=== PATIENT | male | born 1990 | race African-American/Black ===

== ENCOUNTER 2017-06-14 09:41 | Emergency (ER) | payer OTHER ==
[~2017-06-14] VITALS: Ht 187.9 cm; Wt 122.5 kg
[~2017-06-14 09:41] MED LIST: ATARAX,VISTARIL50 MG PO; AUGMENTIN 875 M1 TAB PO; AUGMENTIN 875875 MG PO; BACTRIM DS 8001 TA1 PO; CARBIDOPA/LEVOD1 TA1 PO; CEFADROXIL500 M1 PO; CEPHALEXIN500 M1 PO; CLINDAMYCIN HC300 MG PO; NORCO 5-325 TA1 EACH PO; NOVAPLUS V0.09 MG/Ac IH; PLACEBO #001 EACH PO; Robaxin PO; SEPTRA DS 800 M1 TAB PO; SUBOXONE 4 MG-1 EACH PO; TRAMADOL HCL50 MG PO; VICODIN 500 MG-1 TAB PO; ZOFRAN 4 MG ED2 TAB PO
[2017-06-14 09:48] VITALS: BP 150/93
[2017-06-14] MEDS ORDERED: ZYRTEC10 MG PO (10:53)
[2017-06-14] MEDS ORDERED: AMOXICILLIN500 M2 PO (10:53)
== END 2017-06-14 11:36 | disposition home or self-care (01) ==
LOC: ED 09:41
DX: J01.90 Acute sinusitis, unspecified (principal); F17.200 Nicotine dependence, unspecified, uncomplicated; F11.10 Opioid abuse, uncomplicated; F12.10 Cannabis abuse, uncomplicated; Z90.89 Acquired absence of other organs

== ENCOUNTER 2018-06-07 20:47 | Emergency (ER) | payer OTHER ==
[~2018-06-07] VITALS: Ht 187.9 cm; Wt 127.0 kg
[2018-06-07 20:47] VITALS: BP 137/78
[~2018-06-07 20:47] MED LIST changes: +AMOXICILLIN500 M2 PO; +MUCINEX ER600 MG PO; +SUBOXONE 8 MG-1 EACH SL; +ZYRTEC10 MG PO
[2018-06-07] MEDS ORDERED: SEPTDS PO (22:45)
[2018-06-07] MEDS ORDERED: CEPHALEXIN500 M1 PO (22:45)
== END 2018-06-07 22:43 | disposition home or self-care (01) ==
LOC: ED 20:47
DX: L02.416 Cutaneous abscess of left lower limb (principal); R21 Rash and other nonspecific skin eruption; I10 Essential (primary) hypertension; J45.909 Unspecified asthma, uncomplicated; F17.200 Nicotine dependence, unspecified, uncomplicated; Z79.899 Other long term (current) drug therapy

== ENCOUNTER 2018-11-03 08:38 | Emergency (ER) | payer OTHER ==
[~2018-11-03] VITALS: Ht 187.9 cm; Wt 129.3 kg
[~2018-11-03 08:38] MED LIST changes: +SEPTDS PO
[2018-11-03 08:39] VITALS: BP 151/72
[2018-11-03] MEDS ORDERED: TAMIFLU 75MG CA75 MG PO (09:27)
[2018-11-03] MEDS ORDERED: Motrin,Rufen800 MG PO (09:27)
== END 2018-11-03 09:42 | disposition home or self-care (01) ==
LOC: ED 08:38
DX: J10.1 Influenza due to other identified influenza virus with other respiratory manifestations (principal); I10 Essential (primary) hypertension; J45.909 Unspecified asthma, uncomplicated; F17.200 Nicotine dependence, unspecified, uncomplicated; F14.10 Cocaine abuse, uncomplicated; F12.10 Cannabis abuse, uncomplicated; F11.10 Opioid abuse, uncomplicated; Z98.890 Other specified postprocedural states; Z90.89 Acquired absence of other organs

== ENCOUNTER 2018-11-17 12:33 | Emergency (ER) | payer OTHER ==
[~2018-11-17] VITALS: Ht 187.9 cm; Wt 129.3 kg
[~2018-11-17 12:33] MED LIST changes: +Motrin,Rufen800 MG PO; +TAMIFLU 75MG CA75 MG PO
[2018-11-17 12:35] VITALS: BP 130/82
[2018-11-17 13:02] LABS: BILIRUBIN NEGATIVE (NEGATIVE); BLOOD NEGATIVE (NEGATIVE); CLARITY CLEAR (CLEAR); COLOR YELLOW (YELLOW); GLUCOSE NEGATIVE (NEGATIVE); KETONE NEGATIVE (NEGATIVE); LEUKO ESTERASE NEGATIVE (NEGATIVE); NITRITE NEGATIVE (NEGATIVE); SPECIFIC GRAVITY 1.025 (1.005-1.030)
[2018-11-17 13:12] LABS: BACTERIA 1+; MUCOUS 1+
[2018-11-19 00:06] LABS: GONOCOCCUS BY NAA Negative (Negative)
== END 2018-11-17 13:58 | disposition home or self-care (01) ==
LOC: ED 12:33
PROVIDERS: Nurse Practitioner Family
DX: Z20.2 Contact with and (suspected) exposure to infections with a predominantly sexual mode of transmission (principal); Z72.51 High risk heterosexual behavior; F17.200 Nicotine dependence, unspecified, uncomplicated

== ENCOUNTER 2019-07-13 13:16 | Inpatient (IN) | payer OTHER ==
[~2019-07-13] VITALS: Ht 187.9 cm; Wt 103.5 kg
--- NOTE | 2019-07-13 14:57 | NUR ---
MSADMTime: N A 29 year old MALE admitted to under services of CEE GARZA DO. Pt. arrived via ambulatory from [place]. Chief complaint: WITHDRAWAL. VINH WATSON
[2019-07-13 15:04] VITALS: BP 146/82
--- NOTE | 2019-07-13 15:06 | NUR ---
PATIENT MEETS [facility]. CINA=20,CIWA (B)=31. PATIENT WANTS TO FOLLOW UP WITH [facility] FOR MEDICATED-ASSISTED TREATMENT. REINIER BASHIR B.A. [employer]
[2019-07-13 16:00] VITALS: BP 134/90
--- NOTE | 2019-07-13 17:23 | NUR ---
ROBAXIN GIVEN FOR C/O MUSCLE ACHES, REQUIP GIVEN FOR C/O RESTLESS LEGS, VITARIL GIVEN FOR C/O ANXIETY. WILL MONITOR.
[2019-07-13 20:00] VITALS: BP 136/75
[2019-07-14] VITALS: BP 126/61
--- NOTE | 2019-07-14 00:19 | NUR ---
CALLED DR. BUI ABOUT PATIENT BEING ON ATIVAN TAPER. HE STATED DR. ARREOLA PUT HIM ON IT D/T BENZO ADDICTION.
--- NOTE | 2019-07-14 05:46 | NUR ---
MEDICATED WITH ROBAXIN, VISTARIL, REQUIP AND BENTYL FOR COMPLAINTS OF WITHDRAWAL SYMPTOMS. WILL CONTINUE TO MONITOR.
[2019-07-14 06:30] LABS: BASO % 0.4 % (0.0-1.0); EOS # 0.1 10*3/uL (0.0-0.4); EOS % 1.8 % (1.0-4.0); HEMATOCRIT 45.8 % (42.0-52.0); HEMOGLOBIN 15.2 g/dl (14.0-18.0); LYMPH # 1.5 10*3/uL (1.3-4.4); LYMPH % 19.1 % (27.0-41.0); MEAN CELL VOLUME 88.6 fl (80.0-94.0); MEAN CORPUSCULAR HGB 29.4 pg (27.0-31.0); MEAN CORPUSCULAR HGB CONC 33.2 g/dl (33.0-37.0); MEAN PLATELET VOLUME 11.4 fl (9.6-12.3); MONO # 0.6 10*3/uL (0.1-1.0); MONO % 6.9 % (3.0-9.0); NEUT # 5.7 10*3/uL (2.3-7.9); NEUT % 71.4 % (47.0-73.0); PLATELET COUNT AUTOMATED 267 10*3/uL (130-400); RED BLOOD COUNT 5.17 10*6/uL (4.50-5.90); RED CELL DISTRI WIDTH 11.8 % (0-14.5)
[2019-07-14 06:50] LABS: ALBUMIN 3.7 gm/dl (3.1-4.5); ALKALINE PHOSPHATASE 108 U/L (45-117); BUN 13 mg/dl (7-24); CHLORIDE 101 mmol/L (98-107); CREATININE 0.96 mg/dL (0.70-1.30); FREE T4 1.09 ng/dl (0.76-1.46); PHOSPHOROUS 3.5 mg/dL (2.5-4.9); POTASSIUM 4.2 mmol/L (3.5-5.1); SGOT/AST 36 IU/L (3-35); SGPT/ALT 73 U/L (12-78); SODIUM 135 mmol/L (136-145); TOTAL PROTEIN 9.1 gm/dL (6.4-8.2)
[2019-07-14 06:55] LABS: THYROID STIM HORMONE (HS) 0.103 uIU/ml (0.358-4.75)
--- NOTE | 2019-07-14 07:00 | NUR ---
ARRIVED ON SHIFT, PER PATIENT REQUEST REPORT NOT GIVEN AT BEDSIDE, NO NEEDS VOICED AT THIS TIME, WHITE BOARD UPDATED.
[2019-07-14 08:00] VITALS: BP 130/82
--- NOTE | 2019-07-14 08:10 | NUR ---
Shift chart check completed.
--- NOTE | 2019-07-14 08:56 | NUR ---
PATIENT C/O NAUSEA, PATIENT HAD IV ZOFRAN ORDERED, CALL PLACED TO DR. ANGELO, REQUESTED IT BE CHANGED TO PO PATIENT DOES NOT HAVE IV ACCESS.
--- NOTE | 2019-07-14 09:26 | NUR ---
PATIENT REQUESTING HE BE ESCORTED DOWNSTAIRS TO SEE HIS SIGNIFICANT OTHER, HAD TOLD HIM ON ADMISSION THAT HE COULD, I DID ADVISE PATIENT THAT IT WAS AGAINST POLICY, HE WAS VERY UPSET AND STATED HE WAS JUST GOING TO LEAVE THEN, I ADVISED HIM I WOULD CALL NEWSPERSON WHICH I DID, SHE VERSED SHE WILL CALL DIRECTOR TO FIND OUT. AWAITING CALL BACK.
[2019-07-14 10:19] LABS: URINE AMPHETAMINES < 1000 (1000ng/ml); URINE BARBITURATES < 200 (200ng/ml); URINE BENZODIAZEPINES < 200 (200ng/ml); URINE CANNABINOIDS (THC) > 50 (50ng/ml); URINE COCAINE < 300 (300ng/ml); URINE METHADONE < 300 (300ng/ml); URINE OPIATES < 300 (300ng/ml); URINE PHENCYCLIDINE < 25 (25ng/ml)
[2019-07-14 12:00] VITALS: BP 122/73
--- NOTE | 2019-07-14 14:03 | NUR ---
PATIENT IS GOING TO FOLLOW UP WITH A [facility] CALLED [facility] FOR HIS AFTERCARE PLAN. PATIENT IS ALREADY ESTABLISHED WITH THAT FACILITY. REINIER BASHIR B.A. [employer] DIRECTOR
--- NOTE | 2019-07-14 14:20 | NUR ---
CALL PLACED TO DR ANGELO ADVISED THAT PATIENT LEFT AMA PATIENT DID NOT HAVE IV OR TELEMETRY, SIGNED AMA PAPERS AND INVENTORY SHEET.
== END 2019-07-14 14:20 | disposition left against medical advice (07) | DRG 770 ==
LOC: EDHOLD 13:16 → 5E 13:16
PROVIDERS: Internal Medicine; ADMIT Internal Medicine
DX: F11.23 Opioid dependence with withdrawal (principal); F13.10 Sedative, hypnotic or anxiolytic abuse, uncomplicated; F14.10 Cocaine abuse, uncomplicated; F41.9 Anxiety disorder, unspecified; J45.909 Unspecified asthma, uncomplicated; I10 Essential (primary) hypertension; F17.210 Nicotine dependence, cigarettes, uncomplicated; F12.10 Cannabis abuse, uncomplicated; Z53.21 Procedure and treatment not carried out due to patient leaving prior to being seen by health care provider; Z90.89 Acquired absence of other organs; Z82.49 Family history of ischemic heart disease and other diseases of the circulatory system; Z83.6 Family history of other diseases of the respiratory system; Z71.6 Tobacco abuse counseling; E87.1 Hypo-osmolality and hyponatremia; E83.41 Hypermagnesemia

== ENCOUNTER 2020-03-06 07:54 | Emergency (ER) | payer OTHER ==
[~2020-03-06] VITALS: Ht 187.9 cm; Wt 104.3 kg
[2020-03-06 08:00] VITALS: BP 124/81
[2020-03-06 09:03] LABS: COLOR YELLOW (YELLOW)
[2020-03-06 09:04] LABS: BACTERIA 1+; BILIRUBIN 1+ (NEGATIVE); BLOOD NEGATIVE (NEGATIVE); CLARITY SL CLOUDY (CLEAR); GLUCOSE NEGATIVE (NEGATIVE); KETONE 1+ (NEGATIVE); LEUKO ESTERASE NEGATIVE (NEGATIVE); MUCOUS 3+; NITRITE NEGATIVE (NEGATIVE); PH 8.5 (5.0-9.0); SPECIFIC GRAVITY 1.005 (1.005-1.030)
== END 2020-03-06 09:55 | disposition home or self-care (01) ==
LOC: ED 07:54
PROVIDERS: Emergency Medicine
DX: G56.31 Lesion of radial nerve, right upper limb (principal); R39.12 Poor urinary stream; J45.909 Unspecified asthma, uncomplicated; I10 Essential (primary) hypertension; F17.200 Nicotine dependence, unspecified, uncomplicated; Z90.89 Acquired absence of other organs

== ENCOUNTER 2020-05-18 18:14 | Emergency (ER) | payer OTHER ==
[~2020-05-18] VITALS: Wt 90.7 kg
[2020-05-18 18:15] VITALS: BP 110/70
== END 2020-05-18 19:26 | disposition left against medical advice (07) ==
LOC: ED 18:14
DX: T65.91XA Toxic effect of unspecified substance, accidental (unintentional), initial encounter (principal); J45.909 Unspecified asthma, uncomplicated; I10 Essential (primary) hypertension; Z53.21 Procedure and treatment not carried out due to patient leaving prior to being seen by health care provider; Y92.89 Other specified places as the place of occurrence of the external cause

== ENCOUNTER 2021-04-12 18:38 | Emergency (ER) | payer OTHER ==
[2021-04-12 19:34] VITALS: BP 122/62
[2021-04-12 20:10] LABS: HEMATOCRIT 37.2 % (42.0-52.0); MEAN CELL VOLUME 85.5 fl (80.0-94.0); MEAN CORPUSCULAR HGB 27.8 pg (27.0-31.0); MEAN CORPUSCULAR HGB CONC 32.5 g/dl (33.0-37.0); MEAN PLATELET VOLUME 10.5 fl (9.6-12.3); PLATELET COUNT AUTOMATED 172 10*3/uL (130-400); RED BLOOD COUNT 4.35 10*6/uL (4.50-5.90); RED CELL DISTRI WIDTH 11.3 % (0-14.5); WHITE BLOOD COUNT 6.3 10*3/uL (4.8-10.8)
[2021-04-12 20:23] LABS: ALKALINE PHOSPHATASE 424 U/L (45-117); BUN 14 mg/dl (7-24); CHLORIDE 99 mmol/L (98-107); CREATININE 1.01 mg/dL (0.70-1.30); POTASSIUM 3.2 mmol/L (3.5-5.1); SGOT/AST 198 IU/L (3-35); SGPT/ALT 116 U/L (12-78); SODIUM 134 mmol/L (136-145); TOTAL PROTEIN 7.8 gm/dL (6.4-8.2)
[2021-04-12 20:30] LABS: TOTAL CELLS COUNTED 100 #CELLS
[2021-04-12 20:31] LABS: PLATELET SUFFICIENCY NORMAL (NORMAL)
[2021-04-12] MEDS ORDERED: SEPTDS PO (21:02)
[2021-04-12] MEDS ORDERED: CEPHALEXIN500 M1 PO (21:02)
== END 2021-04-12 21:07 | disposition left against medical advice (07) ==
LOC: ED 18:38
PROVIDERS: Emergency Medicine
DX: A41.9 Sepsis, unspecified organism (principal); R50.9 Fever, unspecified; L02.414 Cutaneous abscess of left upper limb; J45.909 Unspecified asthma, uncomplicated; Z87.891 Personal history of nicotine dependence

== ENCOUNTER 2021-04-21 18:02 | Emergency (ER) | payer OTHER ==
[~2021-04-21] VITALS: Ht 187.9 cm; Wt 117.9 kg
[2021-04-21 18:42] VITALS: BP 139/66
== END 2021-04-21 19:42 ==
LOC: ED 18:02
DX: M54.5 Low back pain (principal); M79.604 Pain in right leg; R20.0 Anesthesia of skin; Z53.21 Procedure and treatment not carried out due to patient leaving prior to being seen by health care provider

== ENCOUNTER 2021-04-25 15:44 | Emergency (ER) | payer OTHER ==
[2021-04-25 17:02] LABS: HEMATOCRIT 41.9 % (42.0-52.0); MEAN CELL VOLUME 82.8 fl (80.0-94.0); MEAN CORPUSCULAR HGB 27.5 pg (27.0-31.0); MEAN CORPUSCULAR HGB CONC 33.2 g/dl (33.0-37.0); PLATELET COUNT AUTOMATED 31 10*3/uL (130-400); RED BLOOD COUNT 5.06 10*6/uL (4.50-5.90); RED CELL DISTRI WIDTH 13.5 % (0-14.5); WHITE BLOOD COUNT 25.5 10*3/uL (4.8-10.8)
[2021-04-25 17:25] LABS: ALBUMIN 1.7 gm/dl (3.1-4.5); ALKALINE PHOSPHATASE 403 U/L (45-117); BUN 70 mg/dl (7-24); CHLORIDE 89 mmol/L (98-107); CPK 58 U/L (39-308); POTASSIUM 3.7 mmol/L (3.5-5.1); SGOT/AST 67 IU/L (3-35); SGPT/ALT 22 U/L (12-78); SODIUM 128 mmol/L (136-145); TOTAL PROTEIN 7.6 gm/dL (6.4-8.2)
[2021-04-25 17:28] LABS: ETHYL ALCOHOL < 3.0 mg/dl (<3); TROPONIN I < 0.015 ng/ml (<0.045)
[2021-04-25 17:33] LABS: THYROID STIM HORMONE (HS) 0.926 uIU/ml (0.358-4.75)
[2021-04-25 17:44] LABS: BILIRUBIN 3+ (Negative); BLOOD 2+ (Negative); CLARITY Turbid (Clear); COLOR Orange (Yellow); GLUCOSE Trace (Negative); KETONE Negative (Negative); LEUKO ESTERASE 2+ (Negative); NITRITE Positive (Negative)
[2021-04-25 17:52] LABS: BACTERIA 4+; WBC 51-100 wbc/hpf (0-5)
[2021-04-25 17:59] LABS: URINE AMPHETAMINES > 1000 (1000ng/ml); URINE BARBITURATES < 200 (200ng/ml); URINE BENZODIAZEPINES < 200 (200ng/ml); URINE CANNABINOIDS (THC) < 50 (50ng/ml); URINE COCAINE > 300 (300ng/ml); URINE METHADONE < 300 (300ng/ml); URINE OPIATES > 300 (300ng/ml)
[2021-04-25 18:06] LABS: URINE PHENCYCLIDINE < 25 (25ng/ml)
[2021-04-25 18:07] LABS: BURR CELLS FEW; PLATELET SUFFICIENCY LOW (NORMAL); TOTAL CELLS COUNTED 100 #CELLS
[2021-04-25 22:30] VITALS: BP 110/70
[2021-04-26 06:07] LABS: HEP B CORE AB, IGM Negative (Negative); HEPATITIS B SURFACE AG Negative (Negative)
[2021-04-29 07:57] LABS: HEPATITIS C VIRUS ANTIBODY >11.0 s/co (0.0-0.9)
== END 2021-04-26 01:45 ==
LOC: ED 15:44
PROVIDERS: Emergency Medicine
DX: I46.9 Cardiac arrest, cause unspecified (principal); A41.9 Sepsis, unspecified organism; R65.21 Severe sepsis with septic shock; K76.7 Hepatorenal syndrome; F19.10 Other psychoactive substance abuse, uncomplicated; I76 Septic arterial embolism; R11.10 Vomiting, unspecified; F41.9 Anxiety disorder, unspecified; J45.909 Unspecified asthma, uncomplicated; I10 Essential (primary) hypertension; F17.210 Nicotine dependence, cigarettes, uncomplicated; Z90.89 Acquired absence of other organs; Z79.2 Long term (current) use of antibiotics